=== PATIENT | male | born 1985 | race African-American/Black ===

== ENCOUNTER 2016-05-15 10:45 | Emergency (ER) | payer OTHER ==
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
[2016-05-15] MEDS ORDERED: CYCLOBENZAPRINE HCL 10 MG TABLET PO ONE (11:46)
[2016-05-15] MEDS ORDERED: NAPROXEN 250 MG TABLET PO ONE (11:46)
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
[2016-05-15 12:14] VITALS: BP 125/68
== END 2016-05-15 12:08 | disposition home or self-care (01) ==
LOC: ER 10:45
DX: S16.1XXA Strain of muscle, fascia and tendon at neck level, initial encounter (principal); S39.012A Strain of muscle, fascia and tendon of lower back, initial encounter; V49.50XA Passenger injured in collision with unspecified motor vehicles in traffic accident, initial encounter; Z91.013 Allergy to seafood; Z87.891 Personal history of nicotine dependence
CPT/HCPCS: 99283

== ENCOUNTER 2019-07-23 10:28 | Emergency (ER) | payer OTHER ==
[2019-07-23] MEDS ORDERED: DIPHENHYDRAMINE HCL 25 MG CAPSULE PO ONE (10:42)
[2019-07-23] MEDS ORDERED: KETOROLAC TROMETHAMINE 60 MG/2 ML SDV IM ONE (10:42)
[2019-07-23] MEDS ORDERED: METOCLOPRAMIDE HCL 10 MG TABLET PO ONE (10:42)
--- NOTE | 2019-07-23 10:56 | ER Document Report ---
HPI - HPI Patient complains to provider of: headache Time Seen by Provider: 07/23/19 10:38 Onset: Yesterday Onset/Duration: Sudden Pain Level: 4 Context: 34-year-old male presents with right-sided headache that started yesterday. Reports he took 2 doses of BC powders without relief of symptoms. Reports he tried to sleep it off last night but still has a headache. Reports he has a history of headaches. Patient reports history of migraines but has never been diagnosed with migraines. Denies fever vomiting diarrhea. Denies trauma. Denies COVID exposure. Patient reports he called into his job at [employer] today because of the headache. Has not taken anything for his headache today. Associated Symptoms: None. denies: Body/muscle aches, Diarrhea, Nausea, V omiting Exacerbated by: Denies Relieved by: Denies Similar symptoms previously: Yes Recently seen / treated by doctor: No Past Medical History - General Information source: Patient - Social History Smoking Status: Never Smoker Cigarette use (# per day): No Frequency of alcohol use: None Drug Abuse: None Occupation: checkers Lives with: Family Family History: Other - Lupus. denies: Arthritis, CAD, COPD, CVA, DM, Hyperlipidemia, Hypertension, Malignancy, Thyroid Disfunction Patient has suicidal ideation: No Patient has homicidal ideation: No Pulmonary Medical History: Reports: Hx Asthma Renal/ Medical History: Denies: Hx Peritoneal Dialysis Musculoskeletal Medical History: Reports Hx Musculoskeletal Trauma - Knee injury during high school Past Surgical History: Reports: Hx Abdominal Surgery - hernia, Hx Herniorrhaphy, Hx Umbilical Hernia - Immunizations Immunizations up to date: Yes Hx Diphtheria, Pertussis, Tetanus Vaccination: Yes Vertical Provider Document - CONSTITUTIONAL Agree With Documented VS: Yes Exam Limitations: No Limitations General Appearance: WD/WN, No Apparent Distress - nontoxic looking - INFECTION CONTROL TRAVEL OUTSIDE OF THE [place] IN LAST 30 DAYS: No - HEENT HEENT: Atraumatic, Normal ENT Exam, Normocephalic, PERRLA. negative: Conjuctival Injection, Pharyngeal Exudate, Pharyngeal Erythema, Tympanic Membrane Red, Tympanic Membrane Bulging Notes: no sinus pain or ttp - NECK Neck: Normal Inspection, Supple. negative: Lymphadenopathy-Left, Lymphadenopathy-Right - RESPIRATORY Respiratory: Breath Sounds Normal, No Respiratory Distress - CARDIOVASCULAR Cardiovascular: Regular Rate, Regular Rhythm - GI/ABDOMEN Gastrointestinal: Abdomen Soft, Abdomen Non-Tender - MUSCULOSKELETAL/EXTREMETIES Musculoskeletal/Extremeties: CORBY CASTRO - NEURO Level of Consciousness: Awake, Alert, Appropriate Motor/Sensory: No Motor Deficit - DERM Integumentary: Warm, Dry Course - Re-evaluation Re-evalutation: 07/23/19 10:55 Patient looks nontoxic. Has history of headaches. Has not taken anything today for his headache. Will be treated with Benadryl Reglan and Toradol. 07/23/19 11:22 Patient reports he is feeling little bit better p.o. fluids provided. 07/23/19 11:49 Patient reports headache almost gone /. - Vital Signs Vital signs: Temp Pulse Resp BP Pulse Ox 97.9 F 95 16 140/80 H 97 07/23/19 10:35 07/23/19 10:31 07/23/19 10:31 07/23/19 10:31 07/23/19 10:31 Discharge - Discharge Clinical Impression: Headache Qualifiers: Headache type: unspecified Headache chronicity pattern: episodic headache Intractability: not intractable Qualified Code(s): R51 - Headache Condition: Stable Disposition: HOME, SELF-CARE Instructions: Use of Diphenhydramine, Headache ([facility]), Reglan ([facility]), Toradol Injection ([facility]) Additional Instructions: *You have been evaluated and treated for a headache *Take ibuprofen and Benadryl as indicated Push your fluids, rest *Follow up with a primary care provider within 1 week for recheck *Return to ED for worsening condition, changes, needs *Return to ED if not better in 24 hours Monitor your blood pressure. Your blood pressure was elevated today. This may be because you were anxious, in pain or because you need medication. It is important to follow up with your primary care provider for full evaluation. Forms: Elevated Blood Pressure, Return to Work
[2019-07-23 12:18] VITALS: BP 139/76
== END 2019-07-23 12:10 | disposition home or self-care (01) ==
LOC: ER 10:28
DX: R51 Headache (principal)
CPT/HCPCS: 99283; 96372; J1885